=== PATIENT | female | born 1980 | race Two or more races ===

== ENCOUNTER 2021-01-10 20:24 | Inpatient (IN) | payer OTHER ==
[~2021-01-10] VITALS: Ht 154.9 cm; Wt 80.7 kg
--- NOTE | 2021-01-10 20:55 | NUR ---
SE REALIZAN ORDENES MEDICAS EN PONCE TOTALIDAD. SE ORIENTA A PACIENTE SOBRE LAS MISMAS.
--- NOTE | 2021-01-11 00:03 | NUR ---
SE RECIBE PTE ALERTA Y ORIENTADA X3 EN [place] CON BARANDAS ELEVADAS. SE RECIBE PTE CANALIZADA AREA JANE DE EDEMA Y DE ENROJECIMIENTO. PTE EN ESPERA DE CONSULTA CON MEDICINA INTERNA.
--- NOTE | 2021-01-11 07:40 | NUR ---
SE RECIBE PACIENTE DE TURNO ANTERIOR ALERTA Y ORIENTADA EN TIEMPO LUGAR Y PERSONA. CON BARANDAS ELEVADAS Y FRENOS AJUSTADOS POR SEGURIDAD. CON VENOPUNCION PATENTE, JANE DE ERITEMA Y EDEMA AL MOMENTO EN SALINE LOCK. PENDIENTE CONSULTA CON DR. MEAGHAN ATKINS POR DIVERTICULITIS. SE ORIENTA SOBRE CONTINUIDAD DE CUIDADO Y TRATAMIENTO DE ENFERMERIA. SE MANTIENE PACIENTE EN OBSERVACION POR CAMBIOS EN PONCE CONDICION.
[2021-01-17] MEDS ORDERED: INTESTINEX680 M1 PO (08:28)
[2021-01-17] MEDS ORDERED: PANTOPRAZOLE SO40 MG PO (08:28)
[2021-01-17] MEDS ORDERED: AMOX-CLAV 875-1 EACH PO (08:28)
== END 2021-01-17 13:55 | disposition home or self-care (01) | DRG 392 ==
LOC: ER 20:24 → SURH 01-11 09:15
PROVIDERS: ADMIT Internal Medicine; ATTEND Internal Medicine
PROC: BW2110Z Computerized Tomography (CT Scan) of Abdomen and Pelvis using Low Osmolar Contrast, Unenhanced and Enhanced (ICD-10-PCS; principal; 2021-01-11)
DX: K57.32 Diverticulitis of large intestine without perforation or abscess without bleeding (principal); D72.828 Other elevated white blood cell count; Z20.822 Contact with and (suspected) exposure to COVID-19

== ENCOUNTER 2021-12-22 07:32 | Inpatient (IN) | payer OTHER ==
[~2021-12-22] VITALS: Ht 154.9 cm; Wt 77.1 kg
[~2021-12-22 07:32] MED LIST: AMOX-CLAV 875-1 EACH PO; INTESTINEX680 M1 PO; PANTOPRAZOLE SO40 MG PO
[2021-12-23] MEDS ORDERED: PANTOPRAZOLE SO40 MG (11:22)
== END 2021-12-25 21:04 | disposition home or self-care (01) | DRG 392 ==
LOC: ER 07:32 → MEDJ 23:17
PROVIDERS: ADMIT Internal Medicine; ATTEND Internal Medicine
PROC: BW21Y0Z Computerized Tomography (CT Scan) of Abdomen and Pelvis using Other Contrast, Unenhanced and Enhanced (ICD-10-PCS; principal; 2021-12-22)
DX: K57.32 Diverticulitis of large intestine without perforation or abscess without bleeding (principal); D72.829 Elevated white blood cell count, unspecified; Z20.822 Contact with and (suspected) exposure to COVID-19